=== PATIENT | female | born 1940 | race Caucasian/White ===

== ENCOUNTER 2018-09-17 22:35 | Emergency (ER) | payer OTHER ==
[~2018-09-17] VITALS: Ht 157.5 cm; Wt 124.7 kg
[2018-09-17 22:35] VITALS: BP_SYST 110
[~2018-09-17 22:35] MED LIST: AMIODARONE HCL 150 MG/3ML VIAL ONE; ATROPINE SULFATE 1 MG/10 ML SYRINGE IVP ONE; CALCIUM CHLORIDE 1 GM/10 ML DISP.SYRIN (14 mEq Ca++/SYR) ONE; EPINEPHrine JECT 1 MG/10 ML SYR ONE; LIDOCAINE JECT 2% PF 100 MG/5ML SYRINGE ONE; MAGNESIUM SULFATE 8 MEQ/2 ML IV ONE; SODIUM BICARBONATE 8.4% JECT 50 MEQ/50 ML SYRINGE ONE
[2018-09-17] MEDS ORDERED: NACL 0.9% 1,000 ML IV ONE (22:45)
[2018-09-17 23:09] LABS: HEMATOCRIT 40.3 % (36-48); HEMOGLOBIN 12.9 g/dL (12.0-16.0); MEAN CORPUSCULAR HEMOGLOBIN 30 pg (27-31); MEAN CORPUSCULAR HGB CONC 32 % (32-36); MEAN CORPUSCULAR VOLUME 93 fL (79.0-98.0); PLATELET COUNT (AUTO) 305 K/uL (130-430); RED BLOOD CELL COUNT(AUTO) 4.35 MIL/uL (4.2-6.2); RED CELL DISTRIBUTION WIDTH 13.1 % (9.0-15.0); WHITE BLOOD COUNT (AUTO) 11.7 K/uL (4.8-10.8)
[2018-09-17 23:10] VITALS: BP_SYST 114
[2018-09-17 23:15] LABS: ANION GAP 12 (5-15); CALCIUM 9.3 mg/dL (8.4-11.0); CHLORIDE 101 mmol/L (98-107); CREATININE 1.29 mg/dL (0.55-1.30); GLUCOSE 248 mg/dL (70-99); POTASSIUM 3.1 mmol/L (3.5-5.1); SODIUM SERUM 142 mmol/L (136-145); UREA NITROGEN, BLOOD 24 mg/dL (8-21)
[2018-09-17 23:22] LABS: ALANINE AMINOTRANSFERASE 158 U/L (12-78); ALBUMIN 3.2 g/dL (3.4-4.8); ASPARTATE AMINOTRANSFERASE 146 U/L (10-37); TOTAL BILIRUBIN 0.2 mg/dL (0.0-1.0)
[2018-09-17 23:23] LABS: INR 1.1 (0.8-1.2); PROTHROMBIN TIME 10.8 SECS (9.5-12.5)
[2018-09-17 23:50] LABS: ATYPICAL LYMPHOCYTES % 13 % (0-0); BAND % (MANUAL) 4 % (0-6); BASOPHILS % (MANUAL) 0 % (0-2); EOSINOPHILS % (MANUAL) 3 % (0-7); LYMPHOCYTES % (MANUAL) 48 % (20-46); MONOCYTES % (MANUAL) 4 % (0-11)
== END 2018-09-17 23:38 | disposition expired ==
LOC: SED 22:35
DX: I46.9 Cardiac arrest, cause unspecified (principal); E78.00 Pure hypercholesterolemia, unspecified; I10 Essential (primary) hypertension
CPT/HCPCS: 31500; 36415; 80053; 82962; 83605; 84484; 85007; 85027; 85610; 85730; 87040; 92950; 93005; 99291; J0171; J0282; J0461; J3475; J7030